=== PATIENT | female | born 1985 | race Caucasian/White ===

== ENCOUNTER 2017-09-02 14:21 | Inpatient (IN) ==
[2017-09-02 17:13] LABS: Basophils % 0.3 % (0.0-0.8); Eosinophils # 0.1 10*3/uL (0.0-0.87); Eosinophils % 0.4 % (0.00-10.9); Hematocrit 35.5 VOL% (35.7-47.0); Hemoglobin 12.7 GM/DL (12.0-16.0); Immature Granulocytes % 0.3 %; Immature Granulocytes Absolute 0.05 #; Lymphocytes # 2.2 10*3/uL (1.4-4.0); Lymphocytes % 14.7 % (21.3-54.2); Mean Corpuscular HGB Conc 35.8 GM/DL (32-36); Mean Corpuscular Hemoglobin 30 PG (27-34); Mean Corpuscular Volume 83.7 FL (87-102); Mean Platelet Volume 9.6 FL (9.6-12.0); Monocytes # 0.6 10*3/uL (0.11-0.8); Monocytes % 4.2 % (1.7-12.7); Neutrophils # 11.8 10*3/uL (1.4-7.4); Neutrophils % 80.1 % (38.7-73.9); Platelet Count 339 T/CUMM (130-400); Red Blood Count 4.24 MC/CUMM (3.8-5.5); Red Cell Distribution Width 12.2 % (9.3-17.3); White Blood Count 14.8 T/CUMM (4-12)
[2017-09-02 17:43] LABS: Apearance,Urine CLOUDY (Clear); Bacteria,Urine Occasional /HPF (Few); Bilirubin,Urine Negative (Negative); Blood, Urine Small mg/dL (Negative); Glucose,Urine (UA) Negative (Negative); Ketones,Urine 20 mg/dL (Negative); Mucus,Urine Occasional /LPF (Occasional); Nitrite,Urine Negative (Negative); Protein,Urine Negative; RBC,Urine 1 /HPF (0-4); Squamous Epithelial Cell,Urine Moderate /HPF (0-10); Urine Color Yellow (Yellow); Urine Urobilinogen < 2.0 EU/DL (0.2-1.0); WBC,Urine 3 /HPF (0-6)
[2017-09-02 17:44] LABS: Alanine Aminotransferase 19 U/L (13-56); Albumin 4.4 G/DL (3.4-5.0); Alkaline Phosphatase 82 U/L (45-117); Aspartate Amino Transferase 18 U/L (0-37); Bilirubin,Total < 0.39 MG/DL (0.2-1.0); Blood Urea Nitrogen 7 MG/DL (7-18); Calcium 9.2 MG/DL (8.5-10.1); Glucose 113 MG/DL (74-106); Osmolality,Calculated 273.7 MOS/KG (273-304); Potassium 3.4 MMOL/L (3.5-5.1); Sodium 138 MMOL/L (136-145); Total Protein 8.3 G/DL (6.4-8.3)
[2017-09-02] MEDS ORDERED: CLINDAMYCIN INJ 600 MG in PREMIX 1 EACH IV STA (18:25)
[2017-09-02] MEDS ORDERED: CLINDAMYCIN INJ 50 ML IV ONE (18:55)
[2017-09-02] MEDS ORDERED: PROMETHAZINE 25 MG/1 ML VIAL ONE (19:43)
[2017-09-02] MEDS ORDERED: HYDROmorphone 2 MG/1 ML VIAL ONE (19:44)
[2017-09-02] MEDS ORDERED: PROMETHAZINE 25 MG/1 ML VIAL IM ONE (19:59)
[2017-09-02] MEDS ORDERED: HYDROmorphone 2 MG/1 ML VIAL IV ONE (19:59)
[2017-09-02] MEDS ORDERED: ACETAMINOPHEN 325 MG TABLET PO PRN (22:07)
[2017-09-02] MEDS ORDERED: BISACODYL 10 MG SUPP RECTAL PRN (22:07)
[2017-09-02] MEDS ORDERED: GENTAMICIN INJ 150 MG in SODIUM CHLORIDE 0.9% 100 ML IV ONE (23:00)
[2017-09-02] MEDS: DOCUSATE SODIUM 100 MG CAPSULE PO SCH (23:04)
[2017-09-02] MEDS: HYDROmorphone 2 MG/1 ML VIAL IV PRN (23:12)
[2017-09-02] MEDS ORDERED: PANTOPRAZOLE 40 MG VIAL IV ONE (23:30)
[2017-09-02] MEDS: SODIUM CHLORIDE 0.9% 1,000 ML IV SCH (23:30)
[2017-09-03] MEDS ORDERED: HYDROmorphone 2 MG/1 ML VIAL IV ONE (01:10)
[2017-09-03] MEDS: PROMETHAZINE 25 MG/1 ML VIAL IM PRN ×3 (02:08→18:55)
[2017-09-03] MEDS: CLINDAMYCIN INJ 900 MG in PREMIX 1 EACH IV SCH ×3 (03:06→21:53)
[2017-09-03] MEDS: HYDROmorphone 2 MG/1 ML VIAL IV PRN ×6 (04:45→12:41)
[2017-09-03 04:48] LABS: Apearance,Urine Slightly Hazy (Clear); Bacteria,Urine Occasional /HPF (Few); Bilirubin,Urine Negative (Negative); Blood, Urine Negative (Negative); Glucose,Urine (UA) Negative (Negative); Hyaline Casts,Urine 100 /LPF (0-3); Ketones,Urine 5 mg/dL (Negative); Mucus,Urine Occasional /LPF (Occasional); Nitrite,Urine Negative (Negative); Protein,Urine Negative; RBC,Urine 1 /HPF (0-4); Squamous Epithelial Cell,Urine Occasional /HPF (0-10); Urine Color Yellow (Yellow); Urine Specific Gravity 1.016 (1.001-1.035); Urine Urobilinogen < 2.0 EU/DL (0.2-1.0); WBC,Urine <1 /HPF (0-6)
[2017-09-03 05:35] LABS: Basophils % 0.4 % (0.0-0.8); Eosinophils # 0.1 10*3/uL (0.0-0.87); Eosinophils % 1.3 % (0.00-10.9); Hematocrit 33.9 VOL% (35.7-47.0); Hemoglobin 11.5 GM/DL (12.0-16.0); Immature Granulocytes % 0.3 %; Immature Granulocytes Absolute 0.03 #; Lymphocytes # 4.1 10*3/uL (1.4-4.0); Lymphocytes % 36.6 % (21.3-54.2); Mean Corpuscular HGB Conc 33.9 GM/DL (32-36); Mean Corpuscular Hemoglobin 29 PG (27-34); Mean Corpuscular Volume 85.6 FL (87-102); Mean Platelet Volume 9.7 FL (9.6-12.0); Monocytes % 8.5 % (1.7-12.7); Neutrophils # 5.9 10*3/uL (1.4-7.4); Neutrophils % 52.9 % (38.7-73.9); Platelet Count 290 T/CUMM (130-400); Red Blood Count 3.96 MC/CUMM (3.8-5.5); Red Cell Distribution Width 12.2 % (9.3-17.3); White Blood Count 11.2 T/CUMM (4-12)
[2017-09-03 06:08] LABS: Bilirubin,Total 0.8 MG/DL (0.2-1.0); Calcium 8.6 MG/DL (8.5-10.1); Osmolality,Calculated 276.4 MOS/KG (273-304); Potassium 3.4 MMOL/L (3.5-5.1); Total Protein 7.2 G/DL (6.4-8.3)
[2017-09-03] MEDS: PANTOPRAZOLE 40 MG VIAL IV SCH (09:42)
[2017-09-03] MEDS: DOCUSATE SODIUM 100 MG CAPSULE PO SCH ×2 (09:42→21:55)
[2017-09-03] MEDS: SODIUM CHLORIDE 0.9% 1,000 ML IV SCH ×2 (09:47→22:01)
[2017-09-03] MEDS ORDERED: ALBUTEROL 2.5 MG/3 ML NEB RESP TX ONE (11:25)
[2017-09-03] MEDS ORDERED: ONDANSETRON 4 MG/2 ML VIAL ONE (12:25)
[2017-09-03] MEDS ORDERED: HYDROmorphone 2 MG/1 ML VIAL ONE (12:25)
[2017-09-03] MEDS ORDERED: HYDROmorphone PCA 30 MG/30 ML SYRINGE IV ONE (12:30)
[2017-09-03] MEDS ORDERED: PROPOFOL 200 MG/20 ML VIAL IV ONE (12:38)
[2017-09-03] MEDS ORDERED: GLYCOPYRROLATE 0.4 MG/2 ML VIAL ONE (12:39)
[2017-09-03] MEDS ORDERED: fentaNYL 100 MCG/2 ML VIAL ONE (12:39)
[2017-09-03] MEDS ORDERED: SEVOFLURANE 1 UNIT/15 MINUTE INH ONE (12:39)
[2017-09-03] MEDS ORDERED: MIDAZOLAM 2 MG/2 ML VIAL ONE (12:39)
[2017-09-03] MEDS ORDERED: ROCURONIUM 100 MG/10 ML VIAL IV ONE (12:40)
[2017-09-03] MEDS ORDERED: NEOSTIGMINE 10 MG/10 ML VIAL ONE (12:40)
[2017-09-03] MEDS ORDERED: ACETAMINOPHEN 1,000 MG/100 ML VIAL IV ONE (12:40)
[2017-09-03] MEDS ORDERED: NALOXONE 0.4 MG/ML VIAL IV PRN (12:45)
[2017-09-03] MEDS ORDERED: HYDROmorphone PCA 30 MG/30 ML SYRINGE IV SCH (13:00)
[2017-09-03] MEDS ORDERED: diphenhydrAMINE 50 MG/1 ML VIAL ONE (13:07)
[2017-09-03] MEDS ORDERED: diphenhydrAMINE 50 MG/1 ML VIAL IV ONE (13:10)
[2017-09-03] MEDS: diphenhydrAMINE 50 MG/1 ML VIAL IM PRN (21:56)
[2017-09-04] MEDS: PROMETHAZINE 25 MG/1 ML VIAL IM PRN ×2 (01:07→09:55)
[2017-09-04] MEDS: diphenhydrAMINE 50 MG/1 ML VIAL IM PRN ×2 (04:30→11:35)
[2017-09-04] MEDS: CLINDAMYCIN INJ 900 MG in PREMIX 1 EACH IV SCH ×2 (04:31→13:55)
[2017-09-04] MEDS: SODIUM CHLORIDE 0.9% 1,000 ML IV SCH (06:48)
[2017-09-04] MEDS: PANTOPRAZOLE 40 MG VIAL IV SCH (09:58)
[2017-09-04] MEDS: DOCUSATE SODIUM 100 MG CAPSULE PO SCH (10:03)
[2017-09-04] MEDS: HYDROmorphone 2 MG/1 ML VIAL IV PRN (11:56)
[2017-09-04 12:10] VITALS: BP 107/67
== END 2017-09-04 16:10 | disposition home or self-care (01) | DRG 743 ==
LOC: N.ED 14:21 → N.EDINP 18:25 → N.2E 19:07
PROVIDERS: ADMIT Specialist; ATTEND Specialist